=== PATIENT | female | born 1985 | race Caucasian/White ===

== ENCOUNTER 2021-07-03 12:04 | Emergency (ER) | payer OTHER ==
[~2021-07-03] VITALS: Ht 167.6 cm; Wt 104.3 kg
[~2021-07-03 12:04] MED LIST: ASPIRIN325 PO; CELEXA20 MG PO; HYDROCODONE-AP1 EAC6 PO; IBUPROFEN 800800 MG PO; OXYCODONE HCL 55 MG PO; PERCOCET 5-3251 EACH PO; XARELTO10 MG PO
[2021-07-03] MEDS ORDERED: OMEPRAZOLE40 MG PO (12:36)
[2021-07-03] MEDS ORDERED: MEGA BIOTIN10000 MCG PO (12:36)
[2021-07-03] MEDS ORDERED: DAILY VITAMIN1 EAC6 PO (12:36)
[2021-07-03] MEDS ORDERED: HYDROCODON-ACE1 EAC7 PO (13:51)
[2021-07-03 14:00] VITALS: BP 129/65
== END 2021-07-03 14:01 | disposition home or self-care (01) ==
LOC: M.ERS 12:04
DX: S93.601A Unspecified sprain of right foot, initial encounter (principal); Z98.890 Other specified postprocedural states; Z90.49 Acquired absence of other specified parts of digestive tract; Z79.899 Other long term (current) drug therapy; Z88.1 Allergy status to other antibiotic agents; Z88.2 Allergy status to sulfonamides; Z88.8 Allergy status to other drugs, medicaments and biological substances; X50.1XXA Overexertion from prolonged static or awkward postures, initial encounter; Y93.39 Activity, other involving climbing, rappelling and jumping off; Y92.89 Other specified places as the place of occurrence of the external cause; Y99.8 Other external cause status

== ENCOUNTER 2021-07-07 16:32 | Emergency (ER) | payer OTHER ==
[~2021-07-07] VITALS: Ht 170.2 cm; Wt 104.3 kg
[~2021-07-07 16:32] MED LIST changes: +DAILY VITAMIN1 EAC6 PO; +HYDROCODON-ACE1 EAC7 PO; +MEGA BIOTIN10000 MCG PO; +OMEPRAZOLE40 MG PO
[2021-07-07 21:31] LABS: ABSOLUTE BASOPHILS 0.1 thou/uL (0.0-0.2); ABSOLUTE LYMPHOCYTES 1.2 thou/uL (0.8-5.3); ABSOLUTE MONOCYTES 0.7 thou/uL (0.0-1.2); ABSOLUTE NEUTROPHILS 7.5 thou/uL (1.6-8.1); BASOPHILS 0.5 %; EOSINOPHILS 0.4 %; HEMATOCRIT 32.4 % (37.0-47.0); HEMOGLOBIN 10.6 gm/dL (12.0-15.0); LYMPHOCYTES 12.4 %; MCH 28.2 pg (26.0-34.0); MCHC 32.7 g/dL (28.0-37.0); MCV 86.3 fL (80.0-100.0); MPV 8.2 fl. (7.2-11.1); NUCLEATED RBCS 0 /100WBC; PLATELET COUNT* 202 thou/uL (150-400); POLYS 79.7 %; RBC 3.75 mil/uL (4.20-5.00); WBC 9.4 thou/uL (4.0-11.0)
[2021-07-07 21:42] LABS: CALCIUM 8.6 mg/dL (8.5-10.1); POTASSIUM 3.5 mmol/L (3.5-5.1)
[2021-07-07 21:47] LABS: ALBUMIN 3.6 g/dL (3.4-5.0); TOTAL BILIRUBIN 0.5 mg/dL (<0.1-1.0); TOTAL PROTEIN 7.1 g/dL (6.4-8.2)
[2021-07-07] MEDS ORDERED: IBUPROFEN 800800 M1 PO (22:32)
[2021-07-07] MEDS ORDERED: CLEOCIN HCL300 MG PO (22:32)
[2021-07-07] MEDS ORDERED: HYDROCODON-ACE1 EAC7 PO (22:38)
[2021-07-07 22:54] VITALS: BP 122/64
== END 2021-07-07 22:56 | disposition home or self-care (01) ==
LOC: M.ERS 16:32
PROVIDERS: Nurse Practitioner Family
DX: S21.139A Puncture wound without foreign body of unspecified front wall of thorax without penetration into thoracic cavity, initial encounter (principal); L03.313 Cellulitis of chest wall; M79.661 Pain in right lower leg; Z90.49 Acquired absence of other specified parts of digestive tract; Z98.890 Other specified postprocedural states; Z79.891 Long term (current) use of opiate analgesic; Z79.899 Other long term (current) drug therapy; Z88.1 Allergy status to other antibiotic agents; Z88.2 Allergy status to sulfonamides; Z88.8 Allergy status to other drugs, medicaments and biological substances; Z88.4 Allergy status to anesthetic agent; Z91.040 Latex allergy status

== ENCOUNTER 2021-07-10 09:39 | Inpatient (IN) | payer OTHER ==
[~2021-07-10] VITALS: Ht 170.2 cm; Wt 104.3 kg
[~2021-07-10 09:39] MED LIST changes: +CLEOCIN HCL300 MG PO; +IBUPROFEN 800800 M1 PO
[2021-07-10 09:47] VITALS: BP 133/83
[2021-07-10 10:19] LABS: ABSOLUTE EOSINOPHILS 0.2 thou/uL (0.0-0.7); ABSOLUTE LYMPHOCYTES 1.2 thou/uL (0.8-5.3); ABSOLUTE MONOCYTES 0.6 thou/uL (0.0-1.2); ABSOLUTE NEUTROPHILS 5.4 thou/uL (1.6-8.1); BASOPHILS 0.3 %; EOSINOPHILS 2.7 %; HEMOGLOBIN 9.5 gm/dL (12.0-15.0); LYMPHOCYTES 16.2 %; MCH 28.2 pg (26.0-34.0); MCHC 32.7 g/dL (28.0-37.0); MCV 86.3 fL (80.0-100.0); MONOCYTES 7.7 %; MPV 8.5 fl. (7.2-11.1); NUCLEATED RBCS 0 /100WBC; PLATELET COUNT* 214 thou/uL (150-400); POLYS 73.1 %; RBC 3.36 mil/uL (4.20-5.00); RDW-CV 13.8 % (10.5-14.5); WBC 7.4 thou/uL (4.0-11.0)
[2021-07-10 10:28] LABS: CALCIUM 8.5 mg/dL (8.5-10.1); CREATININE 0.9 mg/dL (0.6-1.3); POTASSIUM 3.5 mmol/L (3.5-5.1)
[2021-07-10 10:33] LABS: ALBUMIN 3.1 g/dL (3.4-5.0); TOTAL BILIRUBIN 0.6 mg/dL (<0.1-1.0); TOTAL PROTEIN 6.7 g/dL (6.4-8.2)
[2021-07-10 14:40] VITALS: BP 126/77
[2021-07-10 17:00] VITALS: BP 126/77
[2021-07-10 17:30] VITALS: BP 147/68
[2021-07-10 19:40] VITALS: BP 128/66
[2021-07-10] MEDS ORDERED: OMEPRAZOLE40 MG PO (19:53)
[2021-07-10] MEDS ORDERED: CELEXA 10 MG TA10 M1 PO (19:53)
[2021-07-10] MEDS ORDERED: SUPER THERAVIT1 EACH (19:54)
[2021-07-11] VITALS: BP 105/64
--- NOTE | 2021-07-11 05:25 | NUR ---
PATIENT HAS REMAINED ALERT AND ORIENTED X 4 THROUGHOUT THE SHIFT AND RESTING QUIETLY ON HOURLY ROUNDS. REPORTED CHEST HEAVINESS AT 0250 WITH FLUSH OF SALINE LOCK. PATIENT STATES IT OCCURRED DURING THE DAY YESTERDAY BUT RESOLVED AND SHE DIDN'T THINK ANYTHING OF IT AND DID NOT REPORT. PROTOCOL VITAL SIGNS WERE STABLE AND EKG COMPLETED. EKG SR PER COLLEGE ARCHIVIST. PATIENT REPORTS RESOLUTION OF DISCOMFORT WITHOUT INTERVENTION. ANTIBIOTICS PER ORDER. NO INCREASE IN REDNESS RIGHT CHEST. PATIENT FEELS IT HAS SLIGHTLY IMPROVED. CONTINUE TO MONITOR.
[2021-07-11 08:00] VITALS: BP 119/78
[2021-07-11 16:00] VITALS: BP 126/79
[2021-07-11 19:45] VITALS: BP 123/71
[2021-07-11 23:56] VITALS: BP 109/54
--- NOTE | 2021-07-12 06:28 | NUR ---
PATIENT HAS REMAINED ALERT AND ORIENTED X 4 THROUGHOUT THE SHIFT AND RESTING QUIETLY ON HOURLY ROUNDS. VERY DIFFICULT IV RESTART ISSUES BOTH DAYSHIFT AND OVERNIGHT. ANTIBIOTICS NOW ON SCHEDULE. PATIENT EXPERIENCING NAUSEA THIS AM. ZOFRAN PROVIDED. VITAL SIGNS STABLE. SOME DECREASE IN OVERALL PINKNESS RIGHT CHEST/BREAST. CONTINUE TO MONITOR.
[2021-07-12 08:00] VITALS: BP 125/79
[2021-07-12] MEDS ORDERED: ZYVOX600 MG PO (09:33)
--- NOTE | 2021-07-12 09:52 | NUR ---
[facility] SPK WITH PT TO COMPLETE ASSESSMENT. PT LIVES AT HOME WITH SPOUSE. PT IS ACTIVE, EMPLOYEED, AND INDEPENDENT WITH [employer]. PT USES NO DMES. PT DENIES HX WITH HH OR SNF.
--- NOTE | 2021-07-12 10:43 | EKG ---
[place] [address] ELECTROCARDIOGRAM REPORT Name: GLENYS BUTLER Room: [address] ADM IN ..#: [id number] Admission: 07/10/21 Attend Phys: Juan Ramon Pantoja Discharge: Date of : 85 Date of Service: 07/11/21 0301 Report #: [id number] THIS REPORT FOR: //name// [facility] Test Date: 2021-07-11 Test Time: 03:01:11 Pat Name: GLENYS BUTLER Department: Room: [address] Gender: F [employer] Justice: : 1985 Requested By: Juan Ramon Pantoja Order Number: [id number] Reading MD: Ugo De La Fuente Measurements Intervals [place] Rate: 68 P: 47 NM: 133 QRS: 25 QRSD: 97 T: -10 QT: 417 QTc: 444 Interpretive Statements Sinus rhythm Borderline T abnormalities, inferior leads Baseline wander in lead(s) I,II,aVR,aVL,V2,V4,V5,V6 No previous ECG available for comparison Electronically Signed On 07-12-2021 10:43:07 CDT by Ugo De La Fuente [email or web address] <ELECTRONICALLY SIGNED> By: Ugo De La Fuente MD, [facility] 07/12/21 1043 0 0 Ugo De La Fuente MD, [facility] /EPI
[2021-07-12 11:31] VITALS: BP 125/79
[2021-07-12 12:05] VITALS: BP 125/79
== END 2021-07-12 11:45 | disposition home or self-care (01) | DRG 600 ==
LOC: M.ERS 09:39 → M.TBA-ER 10:28 → M.2W 10:28
PROVIDERS: Nurse Practitioner Psychiatric/Mental Health; ADMIT Internal Medicine; ATTEND Internal Medicine
DX: N61.1 Abscess of the breast and nipple (principal); L03.313 Cellulitis of chest wall; Z20.822 Contact with and (suspected) exposure to COVID-19; K29.70 Gastritis, unspecified, without bleeding; F41.9 Anxiety disorder, unspecified; Z90.49 Acquired absence of other specified parts of digestive tract; Z88.1 Allergy status to other antibiotic agents; Z88.2 Allergy status to sulfonamides; Z88.8 Allergy status to other drugs, medicaments and biological substances